=== PATIENT | female | born 1975 | race Caucasian/White ===

== ENCOUNTER 2024-06-09 12:49 | Emergency (ER) | payer MEDICARE, MEDICAID ==
[~2024-06-09] VITALS: Ht 142.2 cm; Wt 109.5 kg
[2024-06-09 13:01] VITALS: PULSE 85; RESP 19; TEMP 98; O2SAT 94
[2024-06-09 13:30] LABS: Basophils # (auto) 0 10 ^3/uL (0-0.2); Basophils % (auto) 0.6 % (0.0-2.0); Eosinophils # (auto) 0.1 10 ^3/uL (0-0.8); Eosinophils % (auto) 2.9 % (0.0-7.0); Hematocrit 34.6 % (36.0-46.0); Hemoglobin 11.5 g/dL (12.2-16.2); Lymphocytes % (auto) 20.3 % (10.0-50.0); Mean Corpuscular Hgb Conc. 33.2 g/dL (32.0-36.0); Mean Corpuscular Volume 96.3 fL (80.0-100.0); Monocytes # (auto) 0.7 10 ^3/uL (0-1.3); Monocytes % (auto) 13.5 % (0.0-12.0); Neutrophils # (auto) 3.2 10 ^3/uL (1.6-8.6); Neutrophils % (auto) 62.7 % (37.0-80.0); Red Cell Distribution Width 15.4 % (11.8-14.3)
[2024-06-09 13:52] LABS: Alanine Aminotransferase 23 U/L (7-40); Alkaline Phosphatase 65 U/L (46-116); Anion Gap 4 (5-15); Aspartate Aminotransferase 30 U/L (13-40); BUN/Creatinine Ratio 17.2 (10.0-20.0); Bilirubin, Total 0.5 mg/dL (0.2-1.0); Blood Urea Nitrogen 17 mg/dL (9-23); Calcium 9.2 mg/dL (8.7-10.4); Carbon Dioxide 30 mmol/L (20-30); Chloride 108 mmol/L (98-107); Glucose 78 mg/dL (74-106); Potassium 4.6 mmol/L (3.5-5.1); Sodium 142 mmol/L (136-145); Total Protein 7.1 g/dL (5.7-8.2)
[2024-06-09] MEDS: FUROSEMIDE 20 MG TAB PO ONE (14:59)
[2024-06-09 15:30] VITALS: BP 167/86; PULSE 85; RESP 19; O2SAT 94
== END 2024-06-09 15:46 | disposition home or self-care (01) ==
LOC: EDBD 12:49 → ER 13:02
DX: S00.12XA Contusion of left eyelid and periocular area, initial encounter (principal); W18.09XA Striking against other object with subsequent fall, initial encounter; Y93.89 Activity, other specified; Y92.89 Other specified places as the place of occurrence of the external cause; Y99.8 Other external cause status
CPT/HCPCS: 36415; 70450; 80053; 83880; 85025

== ENCOUNTER 2024-11-16 17:24 | Inpatient (IN) | payer MEDICARE, MEDICAID ==
[~2024-11-16] VITALS: Ht 142.2 cm; Wt 72.3 kg
--- NOTE | 2024-11-16 18:47 | ECG ---
[facility] Test Date: 2024-11-16 Test Time: 18:45:17 Pat Name: CHIKIS HOLT Department: ER Room: 0281T Gender: F Administrative Support Clerk: LYNNETTE : 1975 Requested By: SHUBHAM ESTEVES Order Number: [id number] Reading MD: Yousuf Marmolejo Measurements Intervals [place] Rate: 78 P: 95 RI: 47 QRS: -1 QRSD: 96 T: -2 QT: 403 QTc: 460 Interpretive Statements Sinus rhythm Paired ventricular premature complexes Short RI interval Right atrial enlargement Abnormal R-wave progression, early transition LVH with secondary repolarization abnormality Anterior Q waves, possibly due to LVH Minimal ST elevation, inferior leads Electronically Signed On 11-22-2024 15:08:29 PST by Yousuf Marmolejo Please click the below link to view image of tracing.
--- NOTE | 2024-11-16 18:53 | ED.PDOC ---
Altered Mental Status HPI Comments Roseanna Camejo is a 49 year old female patient who presents to the ED brought by caregiver (Elif) from assisted living facility ([facility]) due to altered mental status which patient presented since starting her shift (2pm). She presents with confused speech, intermittent repetitive blinking aye movement, rolled her eyes, does not follow orders, is not oriented in any spheres. Could not obtain review of systems due to patients clinical status, all information obtained from caregiver and medical charts she brought. Per caregiver, patient has received all medication Past medical history: Autism, developmental delay, epilepsy, hypothyroidism Surgical history: Caregiver does not recall Family history: Non contributory Social history: Lives in assisted living facility ([facility]). Ezequiel tobacco, alcohol and other drug abuse. Allergies: Denies Home medication: Valproic acid 250mg/5ml take 15ml tid, Gapapentin 250mg/5ml take 6ml in am and at noon, 18ml in pm, Losartan 50mg daily, levothyroxin 75ug PO daily, Metoprolol 100 mg PO daily, Olanzapine 10 mg PO daily, Norethindrone 0.35 daily, Torsemide, senna Fluoxetine, Ketoconazole, Hydroxizine, Melatonin, Promethazine, Sudogest Chief Complaint: General Weakness Time Seen by MD: 17:53 Primary Care Provider: unknown Allergies: Coded Allergies: NO KNOWN ALLERGIES (Unverified , 06/09/24) Information Source: Legal Guardian Mode of Arrival: EMS Severity: Moderate Past Medical History Past Medical History (Other): Autism, developmental delay, epilepsy, hypothyroidism Surgical History: Denies all surgeries 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 TEACHER History: Denies all 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 TEACHER Hx Family History Family History: Reviewed,noncontributory to illness, Unknown Social History Smoker: Non-Smoker Alcohol: Denies ETOH Use Drugs: Denies Drug Use Lives In: [facility] Unable to Obtain due to: Altered Mental Status Physical Exam General Appearance: No Apparent Distress HEENT: PERRL/EOMI Neck: Full Range of Motion, Normal Inspection Respiratory: Lungs Clear, No Accessory Muscle Use, No Respiratory Distress, Normal Breath Sounds Cardiovascular: No Edema, No JVD, Regular Rate/Rhythm Breast Exam: Deferred Gastrointestinal: Non Tender, Soft Genitalia: Deferred Pelvic: Deferred Rectal: Deferred Extremities: Normal inspection, Normal range of motion, Non-tender, No pedal edema Neurologic: Alert (Oriented x1, does not follow commands), Other (Demonstrates repetitive blinking eye movements, moves all extremities.) Cerebellar Function: NOT DONE Reflexes: NOT DONE Skin: Dry, Normal Color, Warm Lymphatic: NOT DONE Was a procedure done? Was a procedure done?: No Differential Diagnosis (ALOC) Differential Diagnosis: Dehydration, Hypoglycemia, Encephalopathy, Sepsis, Seizure, CVA, SAH, Other (UTI, among others) Other Differential Diagnosis Rule out breakthrough seizure / CVA X-Ray, Labs, Meds, VS Vital Signs Date Time Temp Pulse Resp B/P (MAP) Pulse Ox O2 Delivery O2 Flow Rate FiO2 11/16/24 20:03 70 11/16/24 18:45 78 11/16/24 17:34 97.8 60 20 136/86 (103) 93 Lab Test 11/16/24 19:59 11/16/24 18:30 Range/Units Ammonia 39 H 11-32 umol/L Troponin I High Sensitivity 4 3 L </=34 ng/L Levetiracetam Level Pending White Blood Count 3.7 L 4.4-10.8 10^3/uL Red Blood Count 3.93 L 4.0-5.20 10^6/uL Hemoglobin 13.4 12.2-16.2 g/dL Hematocrit 39.6 36.0-46.0 % Mean Corpuscular Volume 100.8 H 80.0-100.0 fL Mean Corpuscular Hemoglobin 34.0 H 28.0-32.0 pg Mean Corpuscular Hemoglobin Concent 33.7 32.0-36.0 g/dL Red Cell Distribution Width 16.6 H 11.8-14.3 % Platelet Count 68 L 140-450 10^3/uL Mean Platelet Volume 8.3 6.9-10.8 fL Neutrophils (%) (Auto) 51.8 37.0-80.0 % Lymphocytes (%) (Auto) 31.8 10.0-50.0 % Monocytes (%) (Auto) 14.7 H 0.0-12.0 % Eosinophils (%) (Auto) 1.3 0.0-7.0 % Basophils (%) (Auto) 0.4 0.0-2.0 % Neutrophils # (Auto) 1.9 1.6-8.6 10 ^3/uL Lymphocytes # (Auto) 1.2 0.4-5.4 10 ^3/uL Monocytes # (Auto) 0.5 0-1.3 10 ^3/uL Eosinophils # (Auto) 0 0-0.8 10 ^3/uL Basophils # (Auto) 0 0-0.2 10 ^3/uL Nucleated Red Blood Cells 0.0 % Platelet Estimate Decreased Macrocytosis Slight Stomatocytes Few Prothrombin Time 11.1 9.3-11.8 sec Prothrombin Time INR 1.05 0.9-1.15 Activated Partial Thromboplast Time 28.2 24.5-34.5 SEC Sodium Level 143 136-145 mmol/L Potassium Level 3.5 3.5-5.1 mmol/L Chloride Level 100 98-107 mmol/L Carbon Dioxide Level 37 H 20-31 mmol/L Anion Gap 6 5-15 Blood Urea Nitrogen 15 9-23 mg/dL Creatinine 1.08 H 0.550-1.02 mg/dL Glomerular Filtration Rate Calc 62 >90 mL/min BUN/Creatinine Ratio 13.9 10.0-20.0 Serum Glucose 83 74-106 mg/dL Lactic Acid Level 0.8 0.4-2.0 mmol/L Calcium Level 9.0 8.7-10.4 mg/dL Magnesium Level 2.2 1.6-2.6 mg/dL Total Bilirubin 0.7 0.2-1.0 mg/dL Aspartate Amino Transferase (AST) 37 13-40 U/L Alanine Aminotransferase (ALT) 21 7-40 U/L Alkaline Phosphatase 84 46-116 U/L B-Type Natriuretic Peptide 514.27 0-100 pg/mL Total Protein 7.2 5.7-8.2 g/dL Albumin 3.7 3.2-4.8 g/dL Beta HCG, Quantitative 0.5 L 1.5-4.2 mIU/mL Valproic Acid Level 114.9 *H 50-100 ug/mL PROCEDURE(s): HWOCT - HEAD WITHOUT CONTRAST REASON: ALOC ORDER NUMBER(s): [id number], ACCESSION NUMBER(s): [id number] EXAM: CT Head Without Intravenous Contrast CLINICAL INDICATION: ALOC TECHNIQUE: Axial computed tomography images of the head/brain without intravenous contrast. This CT exam was performed using one or more of the following dose reduction techniques: automated exposure control, adjustment of the mA and/or kV according to patient size, and/or use of iterative reconstruction technique. RADIATION DOSE: CTDlvol= 58 mGy, DLP= 1177.04 mGy-cm COMPARISON: CT CERVICAL WITHOUT CONTRAST on DOS: 06/18/24, CT HEAD WITHOUT CONTRAST on DOS: 06/18/24, CT HEAD WITHOUT CONTRAST on DOS: 06/09/24, CT Head dated 06/18/24 FINDINGS: BRAIN AND EXTRA-AXIAL SPACES: Unremarkable. No significant white matter disease. No acute intracranial hemorrhage, midline shift or mass effect. BONES/JOINTS: Unremarkable. No acute fracture. SOFT TISSUES: Unremarkable. SINUSES: Mucosal thickening of the maxillary sinuses, likely sinus disease.. MASTOID AIR CELLS: Unremarkable as visualized. No mastoid effusion. OTHER FINDINGS: . . IMPRESSION: 1. No acute intracranial hemorrhage, midline shift or mass effect. 2. If symptoms persist, further evaluation with MRI is recommended. 3. No significant change from the prior exam. PROCEDURE(s): CXRP - CHEST PORTABLE REASON: aloc ORDER NUMBER(s): [id number], ACCESSION NUMBER(s): [id number] EXAM: XR Chest, 1 View CLINICAL INDICATION: aloc TECHNIQUE: Frontal view of the chest. COMPARISON: None FINDINGS: LUNGS AND PLEURAL SPACES: Unremarkable. No consolidation. No pneumothorax. HEART: Unremarkable. No cardiomegaly. MEDIASTINUM: Unremarkable. Normal mediastinal contour. BONES/JOINTS: Unremarkable. No acute fracture. OTHER FINDINGS: . . . IMPRESSION: No acute cardiopulmonary process. HS:Y X-Ray, Labs, Meds, VS Comment Roseanna Camejo is a 49 year old female with a history of Autism, developmental delay, epilepsy, hypothyroidism who presents to the ED brought by caregiver (Elif) from assisted living facility ([place]) due to altered mental status Vitals remarkable for oxygen saturation 93% on room air Exam remarkable for orientation x1, not following commands, moving all extremities CT head IMPRESSION: 1. No acute intracranial hemorrhage, midline shift or mass effect. 2. If symptoms persist, further evaluation with MRI is recommended. 3. No significant change from the prior exam. Chest x-ray IMPRESSION: No acute cardiopulmonary process. CBC remarkable for WBC 3.7, platelets 68, metabolic panel remarkable for CO2 37, creatinine 1.08, BNP 514.27, troponin negative, ABG pH 7.496, PO2 56.4, bicarb 28.2, saturation 91% Patient treated with the following in the ED: Patient was placed on nasal cannula oxygen improving her oxygen saturation to normal. She was not in respiratory distress. She was loaded with IV levetiracetam, as there was concern that the repetitive blinking motions were consistent with seizures. Plan is to admit the patient for respiratory support and Neurology evaluation. Time of 1ST Reevaluation: 22:32 Reevaluation 1ST: Unchanged Patient Education/Counseling: Pt Unresponsive Family Education/Counseling: No Family Present Departure 1 Departure Time of Disposition: 22:32 Impression: Primary Impression: Altered mental status Qualified Codes: R41.82 - Altered mental status, unspecified Additional Impressions: Breakthrough seizure Hypoxia Disposition: ADMITTED INPATIENT Admit to: [facility] Condition: Guarded Critical Care Note Critical Care Time?: No Stability Stability form required: No Heart Score Heart Score: Heart Score Response (Comments) Value History N/A 0 EKG N/A 0 Age N/A 0 Risk Factors N/A 0 Troponin N/A 0 Total 0 SHUBHAM HARMON MD Nov 16, 2024 18:53
[2024-11-16 19:08] LABS: Basophils # (auto) 0 10 ^3/uL (0-0.2); Basophils % (auto) 0.4 % (0.0-2.0); Eosinophils # (auto) 0 10 ^3/uL (0-0.8); Eosinophils % (auto) 1.3 % (0.0-7.0); Hematocrit 39.6 % (36.0-46.0); Hemoglobin 13.4 g/dL (12.2-16.2); Lymphocytes # (auto) 1.2 10 ^3/uL (0.4-5.4); Lymphocytes % (auto) 31.8 % (10.0-50.0); Mean Corpuscular Hgb Conc. 33.7 g/dL (32.0-36.0); Mean Corpuscular Volume 100.8 fL (80.0-100.0); Monocytes # (auto) 0.5 10 ^3/uL (0-1.3); Monocytes % (auto) 14.7 % (0.0-12.0); Neutrophils # (auto) 1.9 10 ^3/uL (1.6-8.6); Neutrophils % (auto) 51.8 % (37.0-80.0); Platelet Count (auto) 68 10^3/uL (140-450); Red Blood Cells 3.93 10^6/uL (4.0-5.20); Red Cell Distribution Width 16.6 % (11.8-14.3); White Blood Cell 3.7 10^3/uL (4.4-10.8)
[2024-11-16 19:27] LABS: Alanine Aminotransferase 21 U/L (7-40); Albumin 3.7 g/dL (3.2-4.8); Alkaline Phosphatase 84 U/L (46-116); Anion Gap 6 (5-15); Aspartate Aminotransferase 37 U/L (13-40); BUN/Creatinine Ratio 13.9 (10.0-20.0); Bilirubin, Total 0.7 mg/dL (0.2-1.0); Blood Urea Nitrogen 15 mg/dL (9-23); Chloride 100 mmol/L (98-107); Glucose 83 mg/dL (74-106); Potassium 3.5 mmol/L (3.5-5.1); Sodium 143 mmol/L (136-145); Total Protein 7.2 g/dL (5.7-8.2)
[2024-11-16 19:58] LABS: Carbon Dioxide 37 mmol/L (20-31)
--- NOTE | 2024-11-16 20:14 | ECG ---
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
[2024-11-16 21:05] LABS: Macrocytosis Slight; Platelet Estimate Decreased; Stomatocytes Few
[2024-11-16 21:41] LABS: Base Excess 4.9 mmol/L (-2.0-3.0)
--- NOTE | 2024-11-16 22:02 | DVHHPRES ---
History of Present Illness Resident Creating Document: BRETT MANNING RESDIENT History of Present Illness This is a 49-year-old female with past medical history of autism, moderate developmental delay, epilepsy, hypothyroidism, seasonal allergy, brought from the assisted living facility due to altered mental status. Per patient caregiver, the patient has been more confused since 2 days which is gradually worsen. Confusion was associated with decreased oral intake and impaired mobility. At baseline, the patient can use few words, and can communicate for basic needs, but since 2 days the patient is less verbal. Review of systems could not obtain due to altered mental status. PMHx: Autism, moderate developmental delay with limited vocabulary, epilepsy, hypothyroidism, allergic rhinitis PSHx: Noncontributory Family history: Noncontributory Social history: Patient is living at assisted living facility ([facility]), since six-month patient's mobility has worsened, dependent on walker and wheelchair, patient is living in assisted living facility since 10-year-old(has been in [facility] due to speech problem and tantrum control). Denies smoking, drink alcohol or any other drug use. Home medication: Valproic acid 250 mg t.i.d., gabapentin 250 mg b.i.d., losartan 50 mg daily, levothyroxine 75 mcg daily, metoprolol 100 mg daily, olanzapine 10 mg b.i.d., [place] trend drawn 0.25 mg b.i.d., torsemide 20 mg daily, senna, fluoxetine 20 mg check daily, ketoconazole shampoo, hydroxyzine 25 mg t.i.d., hydrocortisone cream, melatonin 5 mg q.h.s., promethazine, Sudogest. Allergic history: Patient has history of seasonal allergy PCP: Dr. James Ma Smoke: No ALCOHOL: none Lives: Other Review of Systems Review of Systems General: patient denies fever, fatigue, weaknes, sweating, decreased oral intake since 2 days HEENT: No headaches, visiual changes, hearing loss, tinnitus, nasal congestion and discharge, and sore throat. Cardiovascular: Denies chest pain, palpitations, dyspnea on exertion, orthopnea, or claudication. Respiratory: No cough, and wheezing. Gastrointestinal: Denies nausea, vomiting, dysphagia, odynophagia, heartburn, abdominal pain, flatulence, bloating, diarrhea, constipation, change in stool, or blood in stool. Genitourinary: No dysuria, hematuria, discharge, frequency, urgency, nocturia, incontinence, and urinary retention. Endocrine: No heat or cold intolerance, polydipsia, polyuria, and polyphagia. Neurological: Less verbal since 2 days Psychiatric: Denies depression, anxiety,or insomnia. Musculoskeletal: Denies neck pain, stiffness and swelling, back pain, muscle weakness, joint pain, stiffness, swelling, or limited range of motion. Allergies: Coded Allergies: NO KNOWN ALLERGIES (Unverified , 06/09/24) Medications Current Medications Medications Dose Ordered Sig/Marquita Route Start Time Stop Time Status Last Admin Dose Admin Lactulose 15 ml DAILY PO 11/17/24 10:00 Levetiracetam 100 ml @ 400 mls/hr DAILY IV 11/17/24 10:00 Levothyroxine Sodium 75 mcg QAM@0600 PO 11/17/24 06:00 UNV Exam Vital Signs Vital Signs Date Time Temp Pulse Resp B/P (MAP) Pulse Ox O2 Delivery O2 Flow Rate FiO2 11/16/24 20:03 70 11/16/24 17:34 97.8 20 136/86 (103) 93 Exam General Appearance: Alert, patient is less verbal, orientation could not assessed HEENT: Has intermittent repetitive blinking Respiratory: Bilateral decreased breath sounds Cardiovascular: Regular rate, Normal S1, Normal S2, No murmurs, no chest wall tenderness Abdominal: Normal bowel sounds, Soft, No tenderness, No hepatospenomegaly, No masses Extremities: +1 bilateral pedal edema Skin: Bilateral dry skin of foot with scaling Neuro: Currently the patient is wheelchair-bound, could not perform neurological examination, resting tremor Labs/Xrays Labs Test 11/16/24 21:52 11/16/24 21:37 11/16/24 19:59 11/16/24 18:30 Range/Units Blood Gas Specimen Type Arterial Blood Gas Sample Site Right radial Blood Gas Patient Temperature 37.0 Arterial Blood Date Drawn [id number] Arterial Blood pH 7.496 H 7.350-7.450 Arterial Blood Partial Pressure CO2 37.4 32.0-45.0 mmHg Arterial Blood Partial Pressure O2 56.4 L 83.0-108.0 mmHg Arterial Blood HCO3 28.2 H 21.0-28.0 mmol/L Arterial Blood Oxygen Saturation 91.0 L 94.0-98.0 % Arterial Blood Base Excess 4.9 H -2.0-3.0 mmol/L Arterial Blood Oxyhemoglobin 89.5 L 94.0-98.0 % Arterial Blood Carboxyhemoglobin 0.9 0.5-1.5 % Arterial Blood Methemoglobin 0.7 0.0-1.5 % Balwinder Test Modified Blood Gas Total Hemoglobin 13.40 12.0-16.0 g/dL Blood Gas Liter Flow 0.00 Blood Gas Modality Room air Blood Gas Spontaneous Rate 20 FiO2 % 21.0 Specimen Drawn [facility] Troponin I High Sensitivity 4 </=34 ng/L White Blood Count 3.7 L 4.4-10.8 10^3/uL Red Blood Count 3.93 L 4.0-5.20 10^6/uL Hemoglobin 13.4 12.2-16.2 g/dL Hematocrit 39.6 36.0-46.0 % Mean Corpuscular Volume 100.8 H 80.0-100.0 fL Mean Corpuscular Hemoglobin 34.0 H 28.0-32.0 pg Mean Corpuscular Hemoglobin Concent 33.7 32.0-36.0 g/dL Red Cell Distribution Width 16.6 H 11.8-14.3 % Platelet Count 68 L 140-450 10^3/uL Mean Platelet Volume 8.3 6.9-10.8 fL Neutrophils (%) (Auto) 51.8 37.0-80.0 % Lymphocytes (%) (Auto) 31.8 10.0-50.0 % Monocytes (%) (Auto) 14.7 H 0.0-12.0 % Eosinophils (%) (Auto) 1.3 0.0-7.0 % Basophils (%) (Auto) 0.4 0.0-2.0 % Neutrophils # (Auto) 1.9 1.6-8.6 10 ^3/uL Lymphocytes # (Auto) 1.2 0.4-5.4 10 ^3/uL Monocytes # (Auto) 0.5 0-1.3 10 ^3/uL Eosinophils # (Auto) 0 0-0.8 10 ^3/uL Basophils # (Auto) 0 0-0.2 10 ^3/uL Nucleated Red Blood Cells 0.0 % Platelet Estimate Decreased Macrocytosis Slight Stomatocytes Few Sodium Level 143 136-145 mmol/L Potassium Level 3.5 3.5-5.1 mmol/L Chloride Level 100 98-107 mmol/L Carbon Dioxide Level 37 H 20-31 mmol/L Anion Gap 6 5-15 Blood Urea Nitrogen 15 9-23 mg/dL Creatinine 1.08 H 0.550-1.02 mg/dL Glomerular Filtration Rate Calc 62 >90 mL/min BUN/Creatinine Ratio 13.9 10.0-20.0 Serum Glucose 83 74-106 mg/dL Lactic Acid Level 0.8 0.4-2.0 mmol/L Calcium Level 9.0 8.7-10.4 mg/dL Magnesium Level 2.2 1.6-2.6 mg/dL Total Bilirubin 0.7 0.2-1.0 mg/dL Aspartate Amino Transferase (AST) 37 13-40 U/L Alanine Aminotransferase (ALT) 21 7-40 U/L Alkaline Phosphatase 84 46-116 U/L B-Type Natriuretic Peptide 514.27 0-100 pg/mL Total Protein 7.2 5.7-8.2 g/dL Albumin 3.7 3.2-4.8 g/dL Beta HCG, Quantitative 0.5 L 1.5-4.2 mIU/mL Valproic Acid Level 114.9 *H 50-100 ug/mL Assessment/Plan Assessment/Plan Acute metabolic encephalopathy, likely due to polypharmacy/SIRS/possible hepatic Sirs positive History of autism History of epilepsy Moderate developmental today Serum valproic acid level is raised Head CT scan, shows no acute intracranial abnormalities WBCs decreased at 3.7, heart rate is raised at 95 Continue levetiracetam We will hold home medicine at the moment Empiric antibiotic ceftriaxone IV normal saline Check urinalysis Check flu and COVID-19 Possible gastroenteritis Patient has increased bowel movements since 2 days IV fluid Hepatic steatosis Hyper ammonia Liver ultrasound shows, hepatic steatosis Thrombocytopenia, no bleeding History of hypothyroidism, possible under treatment hypothyroidism Continue levothyroxine 75 mcg TSH is raised at 8.69 Check free T3/T4 DIET: Regular diet BOWEL REGIMEN: No indication for laxative CODE STATUS: Goal of care discussed with the mother on the phone, for more than 23 minutes, full code DISPOSITION: Meds/surge Patient's status discussed with the patient's caregiver on the bedside, and patient's mother on the phone. Case discussed with Dr. Espinoza Plan discussed with: Patient, Other (RN) My Orders Orders - BRETT MANNING RESJOAQUÍN Procedure Category Date Status Time Thyroid Stimulating LAB 11/16/24 In Process Hormone 20:51 Admit ADMIT 11/16/24 Transmitted 20:51 Notify Of Changes TAMMIE 11/16/24 In Process From Base 20:51 Sodium Chloride 0.9% PHA 11/16/24 Logged 22:00 Enoxaparin Sodium PHA 11/16/24 Logged (Lovenox) 22:00 Regular Diet DIET 11/17/24 Transmitted Breakfast Levothyroxine Tablet PHA 11/17/24 Logged (Synthroid Tablet) 06:00 Ammonia LAB 11/16/24 In Process 21:55 LIVER US 11/16/24 Logged 21:55 Comprehensive LAB 11/17/24 Verified Metabolic Panel 04:00 Complete Blood Count LAB 11/17/24 Verified 04:00 Date of Service: Nov 16, 2024 Billing Provider: LAITH ESPINOZA MD Common Visit Codes: [id number] INP/OBS CARE (HIGH) BRETT MANNING RESDIENT Nov 16, 2024 22:02 LAITH ESPINOZA MD Nov 17, 2024 09:43
[2024-11-16 22:20] LABS: INR 1.05 (0.9-1.15); Partial Thromboplastin Time 28.2 SEC (24.5-34.5); Prothrombin Time 11.1 sec (9.3-11.8)
[2024-11-16] MEDS ORDERED: ENOXAPARIN SOD 40 MG/0.4 ML SYRINGE SC ONE (22:30)
--- NOTE | 2024-11-16 23:23 | DVH ---
INDICATION: thrombocytopenia, raised ammonia, to R/O liver disease TECHNIQUE: Multiple real-time sonographic images were obtained of the right upper quadrant. COMPARISON: None FINDINGS: The liver demonstrates heterogeneous echotexture without focal mass lesions. The liver tao sures 15.9 cm. There is no intrahepatic or extrahepatic ductal dilatation. The common duct measures 0.4 cm. The gallbladder is without evidence of stone or sludge. The gallbladder wall measures 0.2 cm and is within normal limits. The right kidney measures 8.5 cm. The right kidney is normal in contour, size, and shape. The echog enicity is normal. There is no hydronephrosis. The pancreas is not well visualized due to overlying bowel gas. IMPRESSION: 1. No acute findings identified. 2. Hepatic steatosis
[2024-11-16 23:45] LABS: Free T3 2.3 pg/mL (2.3-4.2); Free T4 (Free Thyroxine) 1.29 ng/dL (0.89-1.76)
[2024-11-17] MEDS: levETIRAcetam 1000 mg/100ml 100 ML IV ONE (00:20)
[2024-11-17] MEDS: SODIUM CHLORIDE 0.9% 1,000 ML IV ONE (00:36)
[2024-11-17 00:37] VITALS: PULSE 66; RESP 20; O2SAT 93
[2024-11-17 04:38] LABS: White Blood Cell 3.9 10^3/uL (4.4-10.8)
[2024-11-17 04:40] LABS: Hematocrit 34.8 % (36.0-46.0); Hemoglobin 11.9 g/dL (12.2-16.2); Mean Corpuscular Hemoglobin 34.6 pg (28.0-32.0); Mean Corpuscular Hgb Conc. 34.2 g/dL (32.0-36.0); Mean Corpuscular Volume 101.3 fL (80.0-100.0); Platelet Count (auto) 63 10^3/uL (140-450); Red Blood Cells 3.43 10^6/uL (4.0-5.20); Red Cell Distribution Width 16.4 % (11.8-14.3)
[2024-11-17 04:49] LABS: Band Neutrophils % (manual) 0; Basophils % (manual) 0 (0.0-2.0); Blast Cells 0; Metamyelocytes % 0; Myelocytes % 0; Promyelocytes % 0; Reactive Lymphocytes 0
[2024-11-17 04:55] LABS: Alanine Aminotransferase 17 U/L (7-40); Alkaline Phosphatase 78 U/L (46-116); Anion Gap 4 (5-15); Aspartate Aminotransferase 31 U/L (13-40); Blood Urea Nitrogen 18 mg/dL (9-23); Chloride 102 mmol/L (98-107); Glucose 99 mg/dL (74-106); Sodium 142 mmol/L (136-145)
[2024-11-17 04:56] LABS: Albumin 3.5 g/dL (3.2-4.8); Bilirubin, Total 0.6 mg/dL (0.2-1.0); Total Protein 6.8 g/dL (5.7-8.2)
[2024-11-17 04:57] LABS: COVID19 ANTIGEN SOFIA FIA NEGATIVE (NEGATIVE); Rapid Influenza A Negative (Negative); Rapid Influenza B Negative (Negative)
[2024-11-17 04:58] LABS: Carbon Dioxide 36 mmol/L (20-31); Potassium 3.4 mmol/L (3.5-5.1)
[2024-11-17 05:08] LABS: BUN/Creatinine Ratio 15.7 (10.0-20.0)
[2024-11-17] MEDS: LEVOTHYROXINE SODIUM 25 MCG TAB PO SCH (06:32)
[2024-11-17 07:36] LABS: Eosinophils % (manual) 1 (0-7); Lymphocytes % (manual) 30 (10.0-50.0); Macrocytosis Slight; Monocytes % (manual) 13 (0-12); Platelet Estimate Decreased
[2024-11-17] MEDS: POTASSIUM EFFERVESENT TAB 25 MEQ PO ONE (07:53)
[2024-11-17] MEDS: cefTRIAXone 1GM/50ML D5W 50 ML IV SCH (09:15)
[2024-11-17 10:00] VITALS: PULSE 65; RESP 18; O2SAT 93
[2024-11-17] MEDS ORDERED: LACTULOSE 20Gm/30ML SOLN PO SCH (10:00)
[2024-11-17] MEDS: levETIRAcetam 1000 mg/100ml 100 ML IV SCH (11:06)
--- NOTE | 2024-11-17 14:09 | DVHPNRES ---
Progress Note Date Seen: Nov 17, 2024 Resident Creating Document: NII FARRELL RESIDENT Medical Necessity Reason Pt with a Central, PICC or Fol: No Subjective Review of Systems This is a 49-year-old female with past medical history of autism, moderate developmental delay, epilepsy, hypothyroidism, seasonal allergy, brought from the assisted living facility due to altered mental status. Per patient caregiver, the patient has been more confused since 2 days which is gradually worsen. Confusion was associated with decreased oral intake and impaired mobility. At baseline, the patient can use few words, and can communicate for basic needs, but since 2 days the patient is less verbal. Review of system could not be obtain as she is not communicating. Objective vital signs Vital Sign Date Time Temp Pulse Resp B/P (MAP) Pulse Ox O2 Delivery O2 Flow Rate FiO2 11/17/24 12:00 69 18 129/110 (116) 92 11/17/24 10:00 Room Air* 0 21 11/17/24 10:00 98.2 98.2 medications Current Medications Medications Dose Ordered Sig/Marquita Route Start Time Stop Time Status Last Admin Dose Admin Levetiracetam 100 ml @ 400 mls/hr DAILY IV 11/17/24 10:00 11/17/24 11:06 400 MLS/HR Levothyroxine Sodium 75 mcg QAM@0600 PO 11/17/24 06:00 Ceftriaxone Sodium 50 ml @ 100 mls/hr DAILY@09 IV 11/17/24 09:00 11/17/24 09:15 100 MLS/HR Lactulose 15 ml DAILY PO 11/18/24 10:00 UNV Multivitamins/ Minerals 1 tab DAILY PO 11/18/24 10:00 UNV Examination Physical examination: General Appearance: Alert, patient is less verbal, orientation could not assessed HEENT: Has intermittent repetitive blinking Respiratory: Bilateral decreased breath sounds Cardiovascular: Regular rate, Normal S1, Normal S2, No murmurs, no chest wall tenderness Abdominal: Normal bowel sounds, Soft, No tenderness, No hepatospenomegaly, No masses Extremities: +1 bilateral pedal edema Skin: Bilateral dry skin of foot with scaling Neuro: Currently the patient is wheelchair-bound, could not perform neurological examination, resting tremor laboratory and microbiology Laboratory Tests 11/17/24 04:23 Test 11/17/24 04:23 Range/Units Serum Glucose 99 74-106 mg/dL Labs and/or images reviewed: Labs reviewed by me, Image(s) reviewed by me Problem List/Assessment/Plan Problem List/Assessment/Plan Assessment/Plan Acute toxic encephalopathy, likely due to polypharmacy History of autism History of epilepsy Moderate developmental today Serum valproic acid level is raised Head CT scan, shows no acute intracranial abnormalities Hb drops to 11.9 likely due to hemodilution, MCV>100 Continue levetiracetam Hold home meds Empiric antibiotic ceftriaxone Covid/Flu negative Pending urinalysis Consulted neurology for reconciliation of antiepileptic medication. Possible gastroenteritis Patient has increased bowel movements since 2 days 1L normal saline given. Hypokalemia Replenished Hepatic steatosis Hyper ammonia Liver ultrasound shows, hepatic steatosis Ammonia trend 69>31 Thrombocytopenia, no bleeding History of hypothyroidism, possible under treatment hypothyroidism Continue levothyroxine 75 mcg TSH is raised at 8.69 T3/T4 normal DIET: Regular diet BOWEL REGIMEN: 15 ml of lactulose daily. CODE STATUS: Goal of care discussed with the mother on the phone, for more than 23 minutes, full code DISPOSITION: Meds/surge Plan discussed with: Other My Orders My Orders Orders - NII FARRELL RESIDENT Procedure Category Date Status Time Echo 2d Mode Cardiac US 11/17/24 Logged DOP 10:16 Lactulose Oral PHA 11/18/24 Logged 10:00 * Neurology Consult CONS 11/17/24 Transmitted 13:23 Bladder Scan ORDERS 11/17/24 Transmitted 13:23 Sequential TAMMIE 11/17/24 In Process Compression Device 13:23 Multiple Vitamin W PHA 11/18/24 Logged Mineral Tab (Mvi W/ M 10:00 Urinalysis LAB 11/17/24 Uncollected 13:26 Date of Service: Nov 17, 2024 Billing Provider: RIGO BREEN MD Common Visit Codes: [id number] INP/OBS CARE(HIGH) NII FARRELL RESIDENT Nov 17, 2024 14:09 RIGO BREEN MD Nov 19, 2024 15:55
--- NOTE | 2024-11-17 19:25 | DVHINCON2 ---
Date of service: Nov 17, [address] Suero Reason for Consultation ALOC, history of epilepsy, autism History of Present Illness Ms. Camejo is a 49 years old female with a history of hypertension, hypothyroidism, autism, development delay, seizure disorder, the patient was brought to the [facility] on 11/16/2024 with a chief company of altered mental status. At this time, the patient is awake, but she may only oriented to herself, she talks, but she does not answer questions properly. History is obtained from the chart review, Dr. Suero and her facility at [phone] She has autism, mental retardation, her baseline is able to understand her surroundings some degree, with a reasonable social skills, she can express her basic needs but not able to say full long sentences. She walked with a walker or assistance. But since 11/16/2024, the patient was noted to be different from her baseline, more confused. ER notes altered mentioned intermittent repetitive blinking, rolling eyes. She has a seizure disorder, but her facility has not witnessed any seizure activity since she was admitted in 06/2024 According to her medication list, the patient was on folic acid 250 mg/5 mL, 15 mL t.i.d. gabapentin, 250 mg/5ml, 6 ml in the morning, afternoon, 18ml in the evening Depakote, 11/17/2024: 114.9 WBC/HB/PLT/MCV, 11/17/2024: 3. 9/11/9/63/101.3 HCO3 11/16/2024: 37, 11/17/2024: 36 BUN/CR, 11/17/2024: 18/1.15 Liver function tests, 11/17/2024: Unremarkable NH3, : 39, 69, 11/17/2024: 31 Vitamin B12, 11/17/2024: 866 TSH, 12/03/2024: 8.69 FT4, 12/03/2024: 1.29 Ultrasound, 11/16/2024: 1. No acute findings identified. 2. Hepatic steatosis Chest X-Ray, 11/16/2024: No acute cardiopulmonary process CT head, 11/16/2024: 1. No acute intracranial hemorrhage, midline shift or mass effect. 2. If symptoms persist, further evaluation with MRI is recommended. 3. No significant change from the prior exam Past Medical History Hypertension, hypothyroidism, developmental delay, autism, epilepsy Past Surgical History Denies all surgeries Family History Unknown Social History Unknown Allergies: Coded Allergies: NO KNOWN ALLERGIES (Unverified , 06/09/24) Current Medications Current Medications Medications (Trade) Dose Ordered Sig/Marquita Route PRN Reason Start Time Stop Time Status Last Admin Lactulose 15 ml DAILY PO 11/17/24 10:00 11/17/24 01:43 DC Levetiracetam 100 ml @ 400 mls/hr DAILY IV 11/17/24 10:00 11/17/24 11:06 Levothyroxine Sodium (Synthroid Tablet) 75 mcg QAM@0600 PO 11/17/24 06:00 Ceftriaxone Sodium 50 ml @ 100 mls/hr DAILY@09 IV 11/17/24 09:00 11/17/24 09:15 Enoxaparin Sodium (Lovenox) 30 mg DAILY SC 11/18/24 10:00 11/17/24 02:48 DC Lactulose 15 ml DAILY PO 11/18/24 10:00 Multivitamins/ Minerals (Mvi W/ Minerals Tablet) 1 tab DAILY PO 11/18/24 10:00 Review of Systems Unknown Vital Signs Vital Signs Date Time Temp Pulse Resp B/P (MAP) Pulse Ox O2 Delivery O2 Flow Rate FiO2 11/17/24 18:00 89 17 160/93 (115) 11/17/24 16:00 95 11/17/24 14:00 98.7 98.7 11/17/24 10:00 Room Air* 0 21 Physical Exam GENERAL EXAM: General: the patient is well developed and nourished. No acute distress. HEENT: Normocephalic, neck is supple, no carotid bruits. No mass RESPIRATORY: Normal respiratory effort with symmetrical lung expansion. Lungs clear to auscultation. CARDIOVASCULAR: Regular rate and rhythm with no murmurs. S1, S2. ABDOMEN: Soft, nontender, normal bowel sound NEUROLOGICAL: MENTAL STATUS: Awake, oriented to herself SPEECH, LANGUAGE, HIGHER CORTICAL FUNCTION: no aphasia or dysathria. CRANIAL NERVES: #2: Intact visual mark to confrontation. #3,4,6: Pupils are equal, round and reactive. EOMs full and conjugate. #5: Facial sensation intact in all three divisions bilaterally. Mandibular strength intact. #7: Facial muscles symmetrical and strength intact. #8: Hearing grossly normal to voice. #9,10: Uvula and soft palate rise in the midline. Swallow and voice are normal. #11: Trapezius and sternomastoid strength intact bilaterally. #12: Tongue midline. No fasciculations or atrophy. SENSATION: Sensation to touch and pinprick is fine MOTOR: Normal tone in the upper and lower extremity. Normal muscle bulk. No fasciculations. Tremors in both arms, and chin. Muscle strength of the major groups in the upper extremities is 5/5. She moves the legs REFLEXES: Deep tendon reflexes are symmetrical. No pathological reflexes. CEREBELLAR/COORDINATION: Deferred, she can feed herself GAIT/STATION: deferred. Labs/Diagnostic Data Labs Test 11/17/24 04:23 11/17/24 03:04 11/16/24 21:52 11/16/24 21:37 Range/Units White Blood Count 3.9 L 4.4-10.8 10^3/uL Red Blood Count 3.43 L 4.0-5.20 10^6/uL Hemoglobin 11.9 L 12.2-16.2 g/dL Hematocrit 34.8 #L 36.0-46.0 % Mean Corpuscular Volume 101.3 H 80.0-100.0 fL Mean Corpuscular Hemoglobin 34.6 H 28.0-32.0 pg Mean Corpuscular Hemoglobin Concent 34.2 32.0-36.0 g/dL Red Cell Distribution Width 16.4 H 11.8-14.3 % Platelet Count 63 L 140-450 10^3/uL Mean Platelet Volume 8.0 6.9-10.8 fL Neutrophils (%) (Auto) 37.0-80.0 % Lymphocytes (%) (Auto) 10.0-50.0 % Monocytes (%) (Auto) 0.0-12.0 % Basophils (%) (Auto) 0.0-2.0 % Neutrophils # (Auto) 1.6-8.6 10 ^3/uL Lymphocytes # (Auto) 0.4-5.4 10 ^3/uL Monocytes # (Auto) 0-1.3 10 ^3/uL Differential Total Cells Counted 100.0 100 Neutrophils % (Manual) 56 37.0-80.0 Band Neutrophils % (Manual) 0 Lymphocytes % (Manual) 30 10.0-50.0 Monocytes % (Manual) 13 H 0-12 Eosinophils % (Manual) 1 0-7 Basophils % (Manual) 0 0.0-2.0 Metamyelocytes % (manual) 0 Myelocytes % (Manual) 0 Promyelocytes % (Manual) 0 Blast Cells % (Manual) 0 Reactive Lymphocytes 0 Platelet Estimate Decreased Macrocytosis Slight Sodium Level 142 136-145 mmol/L Potassium Level 3.4 L 3.5-5.1 mmol/L Chloride Level 102 98-107 mmol/L Carbon Dioxide Level 36 H 20-31 mmol/L Anion Gap 4 L 5-15 Blood Urea Nitrogen 18 9-23 mg/dL Creatinine 1.15 H 0.550-1.02 mg/dL Glomerular Filtration Rate Calc 58 >90 mL/min BUN/Creatinine Ratio 15.7 10.0-20.0 Serum Glucose 99 74-106 mg/dL Calcium Level 9.0 8.7-10.4 mg/dL Total Bilirubin 0.6 0.2-1.0 mg/dL Aspartate Amino Transferase (AST) 31 13-40 U/L Alanine Aminotransferase (ALT) 17 7-40 U/L Alkaline Phosphatase 78 46-116 U/L Ammonia 31 11-32 umol/L Total Protein 6.8 5.7-8.2 g/dL Albumin 3.5 3.2-4.8 g/dL Vitamin B12 Level 866 211-911 pg/mL Vitamin D 25-Hydroxy 37.3 30.0-100 ng/mL Influenza Type A Antigen Negative Negative Influenza Type B Antigen Negative Negative SARS-CoV-2 Antigen (Rapid) Negative NEGATIVE Thyroid Stimulating Hormone (TSH) 8.69 H 0.55-4.78 uIU/mL Blood Gas Specimen Type Arterial Blood Gas Sample Site Right radial Blood Gas Patient Temperature 37.0 Arterial Blood Date Drawn [id number] Arterial Blood pH 7.496 H 7.350-7.450 Arterial Blood Partial Pressure CO2 37.4 32.0-45.0 mmHg Arterial Blood Partial Pressure O2 56.4 L 83.0-108.0 mmHg Arterial Blood HCO3 28.2 H 21.0-28.0 mmol/L Arterial Blood Oxygen Saturation 91.0 L 94.0-98.0 % Arterial Blood Base Excess 4.9 H -2.0-3.0 mmol/L Arterial Blood Oxyhemoglobin 89.5 L 94.0-98.0 % Arterial Blood Carboxyhemoglobin 0.9 0.5-1.5 % Arterial Blood Methemoglobin 0.7 0.0-1.5 % Balwinder Test Modified Blood Gas Total Hemoglobin 13.40 12.0-16.0 g/dL Blood Gas Liter Flow 0.00 Blood Gas Modality Room air Blood Gas Spontaneous Rate 20 FiO2 % 21.0 [facility] 11/16/24 19:59 11/16/24 18:30 Range/Units Troponin I High Sensitivity 4 </=34 ng/L Eosinophils (%) (Auto) 1.3 0.0-7.0 % Eosinophils # (Auto) 0 0-0.8 10 ^3/uL Basophils # (Auto) 0 0-0.2 10 ^3/uL Nucleated Red Blood Cells 0.0 % Stomatocytes Few Prothrombin Time 11.1 9.3-11.8 sec Prothrombin Time INR 1.05 0.9-1.15 Activated Partial Thromboplast Time 28.2 24.5-34.5 SEC Lactic Acid Level 0.8 0.4-2.0 mmol/L Magnesium Level 2.2 1.6-2.6 mg/dL B-Type Natriuretic Peptide 514.27 0-100 pg/mL Free Thyroxine (T4) Calculated 1.29 0.89-1.76 ng/dL Free Triiodothyronine (T3) pg/mL 2.30 2.3-4.2 pg/mL Beta HCG, Quantitative 0.5 L 1.5-4.2 mIU/mL Valproic Acid Level 114.9 *H 50-100 ug/mL Microbiology Date/Time Source Procedure Growth Status 11/16/24 18:30 Blood Blood Culture - Preliminary Resulted Assessment Altered mental status, etiology unclear Carbon dioxide retention Metabolic encephalopathy ? Hepatic encephalopathy Rule out other etiology Tremors ? Related to Depakote ? Secondary to metabolic encephalopathy Respiratory failure Seizure disorder Autism Mental retardation Thrombocytopenia, ? Secondary to Depakote Microcytic anemia Plan/Recommendation Monitoring Supportive treatment Telemetry Urinalysis Vitamin B12, folic acid EEG Lactulose Agree Keppra 1000 mg b.i.d. for seizure control Ativan for seizure breakthrough More recommendation per clinical course Prognosis: Poor This medical document was created using an electronic medical record system with Dragon computerized dictation system. Although this document has been carefully reviewed, there may still be some phonetic and typographical errors. These areas are purely typographical due to imperfections of the software programs, and do not reflect any compromise in the patient's medical care. Plan discussed with: KIAH Balbuena MD Nov 17, 2024 19:25
[2024-11-17 19:50] VITALS: RESP 18; O2SAT 98
[2024-11-17] MEDS ORDERED: LORazepam 2MG/ML-1ML VIAL IV PRN (20:15)
[2024-11-17 20:54] LABS: Folate (Folic Acid) 12.87 ng/mL (>5.38)
[2024-11-18 08:20] VITALS: PULSE 79; RESP 19; O2SAT 92
--- NOTE | 2024-11-18 09:17 | DVHPN2 ---
Progress Note - Dictate Date Seen: Nov 18, 2024 Medical Necessity Reason Pt with a Central, PICC or Fol: No Subjective Ms. Camejo is a 49 years old female with a history of hypertension, hypothyroidism, autism, development delay, seizure disorder, the patient was brought to the [facility] on 11/16/2024 with a chief company of altered mental status. I have seen and examined the patient, I have talked to her nurse and other medical staff, she was awake, oriented to person place, her voice slurry, she still have same amount of tremor in the arms and the chin According to her medication list, the patient was on valproate acid 250 mg/5 mL, 15 mL t.i.d. gabapentin, 250 mg/5ml, 6 ml in the morning, afternoon, 18ml in the evening Depakote, 11/17/2024: 114.9 WBC/HB/PLT/MCV, 11/17/2024: 3. 9/11/9/63/101.3 HCO3 11/16/2024: 37, 11/17/2024: 36 BUN/CR, 11/17/2024: 18/1.15 Liver function tests, 11/17/2024: Unremarkable NH3, : 39, 69, 11/17/2024: 31 Vitamin B12, 11/17/2024: 866 Folic acid, 11/17/2024: 12.87 TSH, 12/03/2024: 8.69 FT4, 12/03/2024: 1.29 Ultrasound, 11/16/2024: 1. No acute findings identified. 2. Hepatic steatosis Chest X-Ray, 11/16/2024: No acute cardiopulmonary process CT head, 11/16/2024: 1. No acute intracranial hemorrhage, midline shift or mass effect. 2. If symptoms persist, further evaluation with MRI is recommended. 3. No significant change from the prior exam vital signs Vital Sign Date Time Temp Pulse Resp B/P (MAP) Pulse Ox O2 Delivery O2 Flow Rate FiO2 11/18/24 08:37 90 152/85 (107) 96 11/18/24 07:00 98.6 18 98.6 11/17/24 19:50 Room Air* 0 21 Total Intake and Output 11/17/24 11/17/24 11/18/24 15:00 23:00 07:00 Intake Total 50 ml Output Total 75 ml Balance 50 ml -75 ml medications Current Medications Medications Dose Ordered Sig/Marquita Route Start Time Stop Time Status Last Admin Dose Admin Levetiracetam 100 ml @ 400 mls/hr DAILY IV 11/17/24 10:00 11/17/24 11:06 400 MLS/HR Levothyroxine Sodium 75 mcg QAM@0600 PO 11/17/24 06:00 Ceftriaxone Sodium 50 ml @ 100 mls/hr DAILY@09 IV 11/17/24 09:00 11/17/24 09:15 100 MLS/HR Lactulose 15 ml DAILY PO 11/18/24 10:00 Multivitamins/ Minerals 1 tab DAILY PO 11/18/24 10:00 Lorazepam 1 mg Q5MINP PRN IV 11/17/24 20:15 Losartan Potassium 50 mg DAILY PO 11/18/24 10:00 objective General: the patient is well developed and nourished. No acute distress. MENTAL STATUS: Awake, oriented to herself SPEECH, LANGUAGE, HIGHER CORTICAL FUNCTION: no aphasia or dysathria. CRANIAL NERVES: Pupils are equal, round and reactive. EOMs full and conjugate. Facial sensation intact in all three divisions bilaterally. Mandibular strength intact. Facial muscles symmetrical and strength intact. SENSATION: Sensation to touch and pinprick is fine MOTOR: Normal tone in the upper and lower extremity. Normal muscle bulk. No fasciculations. Tremors in both arms, and chin. Muscle strength of the major groups in the upper extremities is 5/5. She moves the legs REFLEXES: Deep tendon reflexes are symmetrical. No pathological reflexes. CEREBELLAR/COORDINATION: Deferred, she can feed herself GAIT/STATION: deferred. laboratory and microbiology Test 11/18/24 08:48 Range/Units Serum Glucose Pending Problem List Altered mental status, etiology unclear Carbon dioxide retention Metabolic encephalopathy ? Hepatic encephalopathy Rule out other etiology Tremors ? Related to Depakote ? Secondary to metabolic encephalopathy Respiratory failure Seizure disorder Autism Mental retardation Thrombocytopenia, ? Secondary to Depakote Macrocytic anemia Assessment/Plan Monitoring Supportive treatment Telemetry Urinalysis EEG Lactulose Agree Keppra 1000 mg b.i.d. for seizure control Ativan for seizure breakthrough More recommendation per clinical course Prognosis: Poor This medical document was created using an electronic medical record system with [employer] dictation system. Although this document has been carefully reviewed, there may still be some phonetic and typographical errors. These areas are purely typographical due to imperfections of the software programs, and do not reflect any compromise in the patient's medical care. Prognosis poor Plan discussed with: Other Total Time (mins): 35 KIAH BRUNO MD Nov 18, 2024 09:17
[2024-11-18 09:29] LABS: Hematocrit 36.4 % (36.0-46.0); Hemoglobin 12.3 g/dL (12.2-16.2); Mean Corpuscular Hgb Conc. 33.7 g/dL (32.0-36.0); Mean Corpuscular Volume 100.9 fL (80.0-100.0); Platelet Count (auto) 69 10^3/uL (140-450); Red Blood Cells 3.61 10^6/uL (4.0-5.20); Red Cell Distribution Width 16.6 % (11.8-14.3); White Blood Cell 4.1 10^3/uL (4.4-10.8)
[2024-11-18 09:36] LABS: Anion Gap 7 (5-15); Carbon Dioxide 29 mmol/L (20-31); Chloride 103 mmol/L (98-107); Potassium 3.7 mmol/L (3.5-5.1); Sodium 139 mmol/L (136-145)
[2024-11-18 09:38] LABS: Band Neutrophils % (manual) 0; Basophils % (manual) 0 (0.0-2.0); Blast Cells 0; Calcium 9.6 mg/dL (8.7-10.4); Metamyelocytes % 0; Myelocytes % 0; Promyelocytes % 0; Reactive Lymphocytes 0
[2024-11-18 09:42] LABS: Glucose 85 mg/dL (74-106)
[2024-11-18 09:43] LABS: BUN/Creatinine Ratio 20.9 (10.0-20.0); Blood Urea Nitrogen 23 mg/dL (9-23)
[2024-11-18] MEDS ORDERED: ENOXAPARIN SOD 30 MG/0.3 ML SYRINGE SC SCH (10:00)
[2024-11-18 10:19] LABS: Urine Bacteria None Seen /hpf (None Seen)
[2024-11-18] MEDS: LACTULOSE 20Gm/30ML SOLN PO SCH (10:25)
[2024-11-18] MEDS: LOSARTAN POTASSIUM 50 MG TAB PO SCH (10:25)
[2024-11-18] MEDS: MULTIPLE VITAMINS W/ MINERALS TAB PO SCH (10:26)
[2024-11-18 10:46] LABS: Urine Blood 3+ /uL (Negative); Urine Clarity Turbid (Clear); Urine Color Light-Orange (Yellow); Urine Protein, UAD 2+ (Negative); Urine Specific Gravity 1.027 (1.001-1.035); Urine Squamous Epithelial Cell None Seen /hpf (<5); Urine Urobilinogen 3 mg/dL (Negative); Urine WBC 66 /hpf (0 - 5)
[2024-11-18 11:02] LABS: Amphetamine Screen, Urine Neg (NEGATIVE); Barbiturate Scree,Urine Neg (NEGATIVE); Benzodiazephine Screen, Urine Neg (NEGATIVE); Cannabinoid Screen, Urine Neg (NEGATIVE); Cocaine Screen, Urine Neg (NEGATIVE); Opiate Scree,Urine Neg (NEGATIVE); Phencyclidine Screen, Urine Neg (NEGATIVE)
--- NOTE | 2024-11-18 11:35 | DVHSR ---
APPROVED REPORT EXAM: LIMITED Two-dimensional and M-mode echocardiogram with Doppler and color Doppler. Blood Pressure: 158/83 mmHg INDICATION hypoxia RISK FACTORS Obesity: Height: 5'5, Weight: 176 DIMENSIONS LVDd (3.8-5.7cm)LA (2D)3.3 (1.9-4.0cm)Aortic Root3.6 (2.0-3.7cm) LVDs (2.5-4.0cm)LA (MM) (1.9-4.0cm)Aortic Cusp Exc1.7 (1.5-2.0cm) EF (%) 55.0 (55-70%)Rt. Atrium3.6 (1.9-4.0cm)Asc. Aorta cm Mitral Valve MitralMitral Stenosis E wave0.58m/sMV Mean GR.mmHg A wave1.00m/sMV Peak GR.mmHg E/A ratio0.62D MVAcm2 DECEL [id number] 1/2 Timems Aortic Valve Aortic ValveAortic Stenosis V10.74m/Zaki Mean GR.4mmHg V21.37m/Zaki Peak GR.7mmHg LVOT Diameter2.4 (1.8-2.4cm)Doppler AVA2.44cm2 LEFT VENTRICLE The left ventricle is of normal size. Ejection fraction is estimated at 55%. Study is nondiagnostic to assess for wall motion abnormalities. There is impaired relaxation of the left ventricle. E to E prime ratio is not assessed. RIGHT VENTRICLE Not well visualized. ATRIA Left atrium is of normal size. Not well visualized. Not well visualized. MITRAL VALVE Likely of normal structure and function. Leaflets are not well visualized. No significant regurgita tion. PULMONIC VALVE Not visualized. TRICUSPID VALVE Not visualized. PA systolic pressure could not be estimated. AORTIC VALVE Not very well visualized. There does not appear to be significant stenosis or regurgitation. GREAT VESSELS Not well visualized. PERICARDIAL EFFUSION No significant pericardial effusion. IVC is not visualized. Other Information Quality : Technically LimitedRhythm : Technically limited study due to PT SITTING UP, PT MOVING Conclusion The study is very technically limited. Left ventricle is of normal size and likely normal systolic function. The right ventricle is not visualized. No evidence of hemodynamically significant aortic stenosis or regurgitation. No significant mitral regurgitation. The other valves are not well visualized. No pericardial effusion. PA systolic pressure could not be estimated.
[2024-11-18 11:47] LABS: Eosinophils % (manual) 2 (0-7); Lymphocytes % (manual) 21 (10.0-50.0); Macrocytosis Slight; Monocytes % (manual) 15 (0-12); Platelet Estimate Decreased
--- NOTE | 2024-11-18 18:33 | DVHPNRES ---
Progress Note Date Seen: Nov 18, 2024 Resident Creating Document: NII FARRELL RESIDENT Medical Necessity Reason Pt with a Central, PICC or Fol: No Subjective Review of Systems This is a 49-year-old female with past medical history of autism, moderate developmental delay, epilepsy, hypothyroidism, seasonal allergy, brought from the assisted living facility due to altered mental status. Per patient caregiver, the patient has been more confused since 2 days which is gradually worsen. Confusion was associated with decreased oral intake and impaired mobility. At baseline, the patient can use few words, and can communicate for basic needs, but since 2 days the patient is less verbal. Patient is seen and examined on the bedside in the ED. Patient is alert, orientedX3 . Patient is less verbal and not able to communicate properly. Objective vital signs Vital Sign Date Time Temp Pulse Resp B/P (MAP) Pulse Ox O2 Delivery O2 Flow Rate FiO2 11/18/24 13:00 68 13 146/65 (92) 94 11/18/24 12:00 98.8 98.8 11/18/24 08:20 Nasal Cannula* 2 28 Total Intake and Output 11/17/24 11/17/24 11/18/24 15:00 23:00 07:00 Intake Total 50 ml Output Total 75 ml Balance 50 ml -75 ml medications Current Medications Medications Dose Ordered Sig/Marquita Route Start Time Stop Time Status Last Admin Dose Admin Levetiracetam 100 ml @ 400 mls/hr DAILY IV 11/17/24 10:00 11/18/24 10:25 400 MLS/HR Levothyroxine Sodium 75 mcg QAM@0600 PO 11/17/24 06:00 Ceftriaxone Sodium 50 ml @ 100 mls/hr DAILY@09 IV 11/17/24 09:00 11/18/24 09:46 100 MLS/HR Lactulose 15 ml DAILY PO 11/18/24 10:00 11/18/24 10:25 15 ML Multivitamins/ Minerals 1 tab DAILY PO 11/18/24 10:00 11/18/24 10:26 1 TAB Lorazepam 1 mg Q5MINP PRN IV 11/17/24 20:15 Losartan Potassium 50 mg DAILY PO 11/18/24 10:00 11/18/24 10:25 50 MG Examination Physical examination: General Appearance: Alert, patient is less verbal, orientation could not assessed HEENT: Has intermittent repetitive blinking Respiratory: Bilateral decreased breath sounds Cardiovascular: Regular rate, Normal S1, Normal S2, No murmurs, no chest wall tenderness Abdominal: Normal bowel sounds, Soft, No tenderness, No hepatospenomegaly, No masses Extremities: +1 bilateral pedal edema Skin: Bilateral dry skin of foot with scaling Neuro: Currently the patient is wheelchair-bound, could not perform neurological examination, resting tremor laboratory and microbiology Laboratory Tests 11/18/24 08:48 Test 11/18/24 08:48 Range/Units Serum Glucose 85 74-106 mg/dL Microbiology Date/Time Source Procedure Growth Status 11/17/24 17:16 Nose MRSA Screen - Final Complete 11/16/24 18:30 Blood Blood Culture - Preliminary Resulted Labs and/or images reviewed: Labs reviewed by me, Image(s) reviewed by me Problem List/Assessment/Plan Problem List/Assessment/Plan Assessment/Plan Acute toxic encephalopathy, likely due to polypharmacy/ Hepatic encephalopathy History of autism History of epilepsy Moderate developmental today Serum valproic acid level is raised Head CT scan, shows no acute intracranial abnormalities Hb drops to 11.9 likely due to hemodilution, MCV>100 Continue levetiracetam Hold home meds Empiric antibiotic ceftriaxone Covid/Flu negative Urinalysis showed no sign of UTI and ordered urine bacterial culture Preliminary blood culture revealed Gram-positive cocci in cluster, resembles possible contamination and ordered another blood culture. Neurology evaluated the patient and recommended EEG, Ativan for seizure breakthrough, telemetry monitoring and seizure precaution Possible gastroenteritis Patient has increased bowel movements since 2 days 1L normal saline given. Hypokalemia Replenished Hepatic steatosis Hyper ammonia Liver ultrasound shows, hepatic steatosis Ammonia trend 69>31 Thrombocytopenia, no bleeding Hypertensive heart disease - Losartan 50 mg p.o. daily - Echo on 11/18/2023 revealed ejection fraction 55% History of hypothyroidism Continue levothyroxine 75 mcg TSH is raised at 8.69 T3/T4 normal DIET: Regular diet BOWEL REGIMEN: 15 ml of lactulose daily. CODE STATUS: Goal of care discussed with the mother on the phone, for more than 23 minutes, full code DISPOSITION: Telemetry Plan discussed with Dr. Irby Plan discussed with: Patient, Other My Orders My Orders Orders - NII FARRELL Procedure Category Date Status Time Losartan Tablet PHA 11/18/24 In Process (Cozaar Tablet) 10:00 Urine Bacterial ANEUDY 11/18/24 Uncollected Culture 15:03 Date of Service: Nov 18, 2024 Billing Provider: RIGO BREEN MD Common Visit Codes: [id number] INP/OBS CARE(HIGH) NII FARRELL RESIDENT Nov 18, 2024 18:33 RIGO BREEN MD Nov 19, 2024 16:21
[2024-11-18 20:00] VITALS: PULSE 87; RESP 19; O2SAT 95
[2024-11-18 23:20] VITALS: PULSE 71; RESP 18; O2SAT 94
[2024-11-18 23:25] VITALS: BP 161/95; PULSE 71; RESP 17; TEMP 99.2; O2SAT 94
[2024-11-19] VITALS (7 sets, daily range): BP systolic 130–166; BP diastolic 65–107; PULSE 66–90; RESP 16–18; TEMP 98.2–99.3; O2SAT 93–97
[2024-11-19] MEDS ORDERED: FLUO40CA PO (01:34)
[2024-11-19] MEDS ORDERED: MELA3TAB27 PO (01:34)
[2024-11-19] MEDS ORDERED: NORETAB32 PO (01:34)
[2024-11-19] MEDS ORDERED: OLAN1TAB19 PO (01:34)
[2024-11-19] MEDS ORDERED: FURO20TA3 PO (01:34)
[2024-11-19] MEDS ORDERED: OLAN1TAB7 PO (01:34)
[2024-11-19] MEDS ORDERED: LEVO-848 PO (01:34)
[2024-11-19] MEDS ORDERED: MET50T PO (01:34)
[2024-11-19] MEDS ORDERED: LOSA-534 PO (01:34)
[2024-11-19] MEDS ORDERED: GABA-1250 PO (01:36)
[2024-11-19] MEDS ORDERED: NORETAB PO (01:40)
[2024-11-19] MEDS ORDERED: VALP250S19 PO (01:40)
[2024-11-19] MEDS: METOPROLOL TARTRATE 50 MG TAB PO SCH (09:17)
--- NOTE | 2024-11-19 12:53 | ECG ---
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
--- NOTE | 2024-11-19 18:04 | DVHPNRES ---
Progress Note Date Seen: Nov 19, 2024 Resident Creating Document: NII FARRELL RESIDENT Medical Necessity Reason Pt with a Central, PICC or Fol: No Subjective Review of Systems This is a 49-year-old female with past medical history of autism, moderate developmental delay, epilepsy, hypothyroidism, seasonal allergy, brought from the assisted living facility due to altered mental status. Per patient caregiver, the patient has been more confused since 2 days which is gradually worsen. Confusion was associated with decreased oral intake and impaired mobility. At baseline, the patient can use few words, and can communicate for basic needs, but since 2 days the patient is less verbal. Patient is seen and examined on the bedside in the ED. Patient is alert, orientedX3 . Patient is less verbal and not able to communicate properly. Objective vital signs Vital Sign Date Time Temp Pulse Resp B/P (MAP) Pulse Ox O2 Delivery O2 Flow Rate FiO2 11/19/24 16:36 99.3 73 16 130/65 (86) 93 99.3 11/19/24 08:00 Nasal Cannula* 2 28 Total Intake and Output 11/18/24 11/18/24 11/19/24 15:00 23:00 07:00 Intake Total 150 ml Output Total 650 ml 550 ml Balance -500 ml -550 ml medications Current Medications Medications Dose Ordered Sig/Marquita Route Start Time Stop Time Status Last Admin Dose Admin Levetiracetam 100 ml @ 400 mls/hr DAILY IV 11/17/24 10:00 11/19/24 11:03 400 MLS/HR Levothyroxine Sodium 75 mcg QAM@0600 PO 11/17/24 06:00 11/19/24 05:36 75 MCG Ceftriaxone Sodium 50 ml @ 100 mls/hr DAILY@09 IV 11/17/24 09:00 11/19/24 09:16 100 MLS/HR Lactulose 15 ml DAILY PO 11/18/24 10:00 11/19/24 09:19 15 ML Multivitamins/ Minerals 1 tab DAILY PO 11/18/24 10:00 11/19/24 09:16 1 TAB Lorazepam 1 mg Q5MINP PRN IV 11/17/24 20:15 Losartan Potassium 50 mg DAILY PO 11/18/24 10:00 11/19/24 09:17 50 MG Metoprolol Tartrate 50 mg BID PO 11/19/24 10:00 11/19/24 09:17 50 MG Examination Physical examination: General Appearance: Alert, patient is less verbal, orientation could not assessed HEENT: Has intermittent repetitive blinking Respiratory: Bilateral decreased breath sounds Cardiovascular: Regular rate, Normal S1, Normal S2, No murmurs, no chest wall tenderness Abdominal: Normal bowel sounds, Soft, No tenderness, No hepatospenomegaly, No masses Extremities: +1 bilateral pedal edema Skin: Bilateral dry skin of foot with scaling Neuro: Currently the patient is wheelchair-bound, could not perform neurological examination, resting tremor laboratory and microbiology Laboratory Tests 11/18/24 08:48 Test 11/18/24 08:48 Range/Units Serum Glucose 85 74-106 mg/dL Microbiology Date/Time Source Procedure Growth Status 11/18/24 11:45 Blood Blood Culture - Preliminary NO GROWTH AFTER 24 HOURS OF INCUBATION. Resulted 11/18/24 08:53 Voided Urine Urine Culture - Preliminary Resulted 11/17/24 17:16 Nose MRSA Screen - Final Complete Labs and/or images reviewed: Labs reviewed by me, Image(s) reviewed by me Problem List/Assessment/Plan Problem List/Assessment/Plan Assessment/Plan Acute toxic encephalopathy, likely due to polypharmacy / Hepatic encephalopathy History of autism History of epilepsy Moderate developmental today Serum valproic acid level is raised Head CT scan, shows no acute intracranial abnormalities Hb drops to 11.9 likely due to hemodilution, MCV>100 Continue levetiracetam Hold home meds Empiric antibiotic ceftriaxone Covid/Flu negative Urinalysis showed no sign of UTI and ordered urine bacterial culture Preliminary blood culture revealed Gram-positive cocci in cluster, resembles possible contamination and ordered another blood culture. Neurology evaluated the patient and recommended EEG, Ativan for seizure breakthrough, telemetry monitoring and seizure precaution Possible gastroenteritis Patient has increased bowel movements since 2 days 1L normal saline given. Hypokalemia Replenished Hepatic steatosis Hyper ammonia Liver ultrasound shows, hepatic steatosis Ammonia trend 69>31 Thrombocytopenia, no bleeding Hypertensive heart disease - Losartan 50 mg p.o. daily - Echo on 11/18/2023 revealed ejection fraction 55% History of hypothyroidism Continue levothyroxine 75 mcg TSH is raised at 8.69 T3/T4 normal DIET: Regular diet BOWEL REGIMEN: 15 ml of lactulose daily. DVT prophylaxis : SCD CODE STATUS: Goal of care discussed with the mother on the phone, for more than 23 minutes, DNR DISPOSITION: Telemetry Plan discussed with Dr. Irby Plan discussed with: Patient, Other My Orders My Orders Orders - NII FARRELL Procedure Category Date Status Time Metoprolol Tartrate PHA 11/19/24 In Process Tablet (Lopressor Ta 10:00 Date of Service: Nov 19, 2024 Billing Provider: RIGO BREEN MD Common Visit Codes: [id number] INP/OBS CARE(HIGH) NII FARRELL Nov 19, 2024 18:04 RIGO BREEN MD Nov 23, 2024 16:21
--- NOTE | 2024-11-19 20:45 | DVHPN2 ---
Progress Note - Dictate Date Seen: Nov 19, 2024 Medical Necessity Reason Pt with a Central, PICC or Fol: No Subjective Ms. Camejo is a 49 years old female with a history of hypertension, hypothyroidism, autism, development delay, seizure disorder, the patient was brought to the [facility] on 11/16/[facility]24 with a chief company of altered mental status. I have seen and examined the patient, I have talked to her nurse and sitter, she was awake, she may only oriented to herself, she sometimes tries to get out of bed Sitter witnessed 4 spells event in that she spaces out, with flicking in the eyes, According to her medication list, the patient was on valproate acid 250 mg/5 mL, 15 mL t.i.d. gabapentin, 250 mg/5ml, 6 ml in the morning, afternoon, 18ml in the evening Depakote, 11/17/2024: 114.9 WBC/HB/PLT/MCV, 11/17/2024: 3. 9/11/9/63/101.3 HCO3 11/16/2024: 37, 11/17/2024: 36 BUN/CR, 11/17/2024: 18/1.15 Liver function tests, 11/17/2024: Unremarkable NH3, : 39, 69, 11/17/2024: 31 Vitamin B12, 11/17/2024: 866 Folic acid, 11/17/2024: 12.87 TSH, 12/03/2024: 8.69 FT4, 12/03/2024: 1.29 Ultrasound, 11/16/2024: 1. No acute findings identified. 2. Hepatic steatosis Chest X-Ray, 11/16/2024: No acute cardiopulmonary process CT head, 11/16/2024: 1. No acute intracranial hemorrhage, midline shift or mass effect. 2. If symptoms persist, further evaluation with MRI is recommended. 3. No significant change from the prior exam vital signs Vital Sign Date Time Temp Pulse Resp B/P (MAP) Pulse Ox O2 Delivery O2 Flow Rate FiO2 11/19/24 16:36 99.3 73 16 130/65 (86) 93 99.3 11/19/24 08:00 Nasal Cannula* 2 28 Total Intake and Output 11/18/24 11/18/24 11/19/24 15:00 23:00 07:00 Intake Total 150 ml Output Total 650 ml 550 ml Balance -500 ml -550 ml medications Current Medications Medications Dose Ordered Sig/Marquita Route Start Time Stop Time Status Last Admin Dose Admin Levetiracetam 100 ml @ 400 mls/hr DAILY IV 11/17/24 10:00 11/19/24 11:03 400 MLS/HR Levothyroxine Sodium 75 mcg QAM@0600 PO 11/17/24 06:00 11/19/24 05:36 75 MCG Ceftriaxone Sodium 50 ml @ 100 mls/hr DAILY@09 IV 11/17/24 09:00 11/19/24 09:16 100 MLS/HR Lactulose 15 ml DAILY PO 11/18/24 10:00 11/19/24 09:19 15 ML Multivitamins/ Minerals 1 tab DAILY PO 11/18/24 10:00 11/19/24 09:16 1 TAB Lorazepam 1 mg Q5MINP PRN IV 11/17/24 20:15 Losartan Potassium 50 mg DAILY PO 11/18/24 10:00 11/19/24 09:17 50 MG Metoprolol Tartrate 50 mg BID PO 11/19/24 10:00 11/19/24 09:17 50 MG objective General: the patient is well developed and nourished. No acute distress. MENTAL STATUS: Awake, oriented to herself SPEECH, LANGUAGE, HIGHER CORTICAL FUNCTION: no aphasia or dysathria. CRANIAL NERVES: Pupils are equal, round and reactive. EOMs full and conjugate. Facial sensation intact in all three divisions bilaterally. Mandibular strength intact. Facial muscles symmetrical and strength intact. SENSATION: Sensation to touch and pinprick is fine MOTOR: Normal tone in the upper and lower extremity. Normal muscle bulk. No fasciculations. Tremors in both arms, and chin. Muscle strength of the major groups in the upper extremities is 5/5. She moves the legs, muscle power feels no less than 4/5 REFLEXES: Deep tendon reflexes are symmetrical. No pathological reflexes. CEREBELLAR/COORDINATION: Deferred, she can feed herself GAIT/STATION: deferred. laboratory and microbiology Laboratory Tests 11/18/24 08:48 Test 11/18/24 08:48 Range/Units Serum Glucose 85 74-106 mg/dL Problem List Altered mental status, etiology unclear Carbon dioxide retention Metabolic encephalopathy ? Hepatic encephalopathy Rule out other etiology Tremors ? Related to Depakote ? Secondary to metabolic encephalopathy Respiratory failure Seizure disorder Autism Mental retardation Thrombocytopenia, ? Secondary to Depakote Macrocytic anemia The for episodic event reported by jessica on 11/19/2024 could be partial complex seizure Assessment/Plan Monitoring Supportive treatment Telemetry Urinalysis EEG Lactulose Keppra 1000 mg b.i.d. for seizure control Ativan for seizure breakthrough More recommendation per clinical course This medical document was created using an electronic medical record system with [employer] dictation system. Although this document has been carefully reviewed, there may still be some phonetic and typographical errors. These areas are purely typographical due to imperfections of the software programs, and do not reflect any compromise in the patient's medical care. Prognosis poor Plan discussed with: Other KIAH BRUNO MD Nov 19, 2024 20:45
[2024-11-20] VITALS (8 sets, daily range): BP systolic 155–167; BP diastolic 82–103; PULSE 61–76; RESP 17–20; TEMP 97.8–99.1; O2SAT 94–96
[2024-11-20] MEDS ORDERED: OLANZapine 5 MG TAB PO ONE (00:45)
[2024-11-20] MEDS: OLANZapine 5 MG TAB PO ONE (02:19)
[2024-11-20 06:05] LABS: Hemoglobin 11.2 g/dL (12.2-16.2); Mean Corpuscular Hemoglobin 34.5 pg (28.0-32.0); Mean Corpuscular Hgb Conc. 33.9 g/dL (32.0-36.0); Platelet Count (auto) 75 10^3/uL (140-450); Red Blood Cells 3.24 10^6/uL (4.0-5.20); Red Cell Distribution Width 15.9 % (11.8-14.3); White Blood Cell 4.2 10^3/uL (4.4-10.8)
[2024-11-20 06:27] LABS: Basophils % (manual) 0 (0.0-2.0); Blast Cells 0; Metamyelocytes % 0; Myelocytes % 0; Promyelocytes % 0; Reactive Lymphocytes 0
[2024-11-20 06:32] LABS: Calcium 8.9 mg/dL (8.7-10.4); Carbon Dioxide 26 mmol/L (20-31)
[2024-11-20 06:33] LABS: Potassium 4.3 mmol/L (3.5-5.1)
[2024-11-20 06:37] LABS: BUN/Creatinine Ratio 21.8 (10.0-20.0); Blood Urea Nitrogen 17 mg/dL (9-23); Glucose 93 mg/dL (74-106)
[2024-11-20 06:38] LABS: Chloride 111 mmol/L (98-107)
[2024-11-20 06:47] LABS: Band Neutrophils % (manual) 1; Eosinophils % (manual) 5 (0-7); Lymphocytes % (manual) 22 (10.0-50.0); Monocytes % (manual) 9 (0-12)
[2024-11-20 06:48] LABS: Macrocytosis Slight; Platelet Estimate Decreased
[2024-11-20 07:04] LABS: Anion Gap 4 (5-15); Sodium 141 mmol/L (136-145)
[2024-11-20] MEDS ORDERED: KEP500T PO (12:24)
[2024-11-20] MEDS ORDERED: LACT10SO3 PO (12:24)
--- NOTE | 2024-11-20 13:28 | DVHDSRES ---
Discharge Summary Date of Admission Resident Creating Document: NII FARRELL RESIDENT Nov 16, 2024 at 20:51 Date of Discharge: Nov 20, 2024 Admitting Diagnosis Acute metabolic / toxic encephalopathy Wounds: No wound was present Labs/Diagnostic Data: Laboratory Results Test 11/20/24 04:53 11/18/24 08:53 11/17/24 04:23 11/17/24 03:04 White Blood Count 4.2 10^3/uL (4.4-10.8) Red Blood Count 3.24 10^6/uL (4.0-5.20) Hemoglobin 11.2 g/dL (12.2-16.2) Hematocrit 33.0 % (36.0-46.0) Mean Corpuscular Volume 102.0 fL (80.0-100.0) Mean Corpuscular Hemoglobin 34.5 pg (28.0-32.0) Mean Corpuscular Hemoglobin Concent 33.9 g/dL (32.0-36.0) Red Cell Distribution Width 15.9 % (11.8-14.3) Platelet Count 75 10^3/uL (140-450) Mean Platelet Volume 8.2 fL (6.9-10.8) Neutrophils (%) (Auto) % (37.0-80.0) Lymphocytes (%) (Auto) % (10.0-50.0) Monocytes (%) (Auto) % (0.0-12.0) Basophils (%) (Auto) % (0.0-2.0) Neutrophils # (Auto) 10 ^3/uL (1.6-8.6) Lymphocytes # (Auto) 10 ^3/uL (0.4-5.4) Monocytes # (Auto) 10 ^3/uL (0-1.3) Differential Total Cells Counted 100.0 (100) Neutrophils % (Manual) 63 (37.0-80.0) Band Neutrophils % (Manual) 1 Lymphocytes % (Manual) 22 (10.0-50.0) Monocytes % (Manual) 9 (0-12) Eosinophils % (Manual) 5 (0-7) Basophils % (Manual) 0 (0.0-2.0) Metamyelocytes % (manual) 0 Myelocytes % (Manual) 0 Promyelocytes % (Manual) 0 Blast Cells % (Manual) 0 Reactive Lymphocytes 0 Platelet Estimate Decreased Macrocytosis Slight Sodium Level 141 mmol/L (136-145) Potassium Level 4.3 mmol/L (3.5-5.1) Chloride Level 111 mmol/L (98-107) Carbon Dioxide Level 26 mmol/L (20-31) Anion Gap 4 (5-15) Blood Urea Nitrogen 17 mg/dL (9-23) Creatinine 0.78 mg/dL (0.550-1.02) Glomerular Filtration Rate Calc 92 mL/min (>90) BUN/Creatinine Ratio 21.8 (10.0-20.0) Serum Glucose 93 mg/dL (74-106) Calcium Level 8.9 mg/dL (8.7-10.4) Urine Color Light-orange (Yellow) Urine Clarity Turbid (Clear) Urine pH 6.0 (5.0-9.0) Urine Specific [place] 1.027 (1.001-1.035) Urine Protein 2+ (Negative) Urine Ketones 1+ (Negative) Urine Blood 3+ /uL (Negative) Urine Nitrite Negative (Negative) Urine Bilirubin Negative (Negative) Urine Urobilinogen 3 mg/dL (Negative) Urine Leukocyte Esterase Trace /uL (Negative) Urine RBC 1279 /hpf (0 - 4) Urine WBC 66 /hpf (0 - 5) Urine Squamous Epithelial Cells None seen /hpf (<5) Urine Bacteria None seen /hpf (None Seen) Urine Glucose Normal mg/dL (Normal) Urine Opiates Screen Neg (NEGATIVE) Urine Fentanyl Screen Neg (NEGATIVE) Urine Barbiturates Screen Neg (NEGATIVE) Urine Phencyclidine Screen Neg (NEGATIVE) Urine Amphetamines Screen Neg (NEGATIVE) Urine Benzodiazepines Screen Neg (NEGATIVE) Urine Cocaine Screen Neg (NEGATIVE) Urine Cannabinoids Screen Neg (NEGATIVE) Total Bilirubin 0.6 mg/dL (0.2-1.0) Aspartate Amino Transferase (AST) 31 U/L (13-40) Alanine Aminotransferase (ALT) 17 U/L (7-40) Alkaline Phosphatase 78 U/L (46-116) Ammonia 31 umol/L (11-32) Total Protein 6.8 g/dL (5.7-8.2) Albumin 3.5 g/dL (3.2-4.8) Vitamin B12 Level 1198 pg/mL (211-911) Vitamin D 25-Hydroxy 37.3 ng/mL (30.0-100) Folic Acid 12.87 ng/mL (>5.38) Influenza Type A Antigen Negative (Negative) Influenza Type B Antigen Negative (Negative) SARS-CoV-2 Antigen (Rapid) Negative (NEGATIVE) Test 11/16/24 21:52 11/16/24 21:37 11/16/24 19:59 11/16/24 18:30 Thyroid Stimulating Hormone (TSH) 8.69 uIU/mL (0.55-4.78) Blood Gas Specimen Type Arterial Blood Gas Sample Site Right radial Blood Gas Patient Temperature 37.0 Arterial Blood Date Drawn [id number] Arterial Blood pH 7.496 (7.350-7.450) Arterial Blood Partial Pressure CO2 37.4 mmHg (32.0-45.0) Arterial Blood Partial Pressure O2 56.4 mmHg (83.0-108.0) Arterial Blood HCO3 28.2 mmol/L (21.0-28.0) Arterial Blood Oxygen Saturation 91.0 % (94.0-98.0) Arterial Blood Base Excess 4.9 mmol/L (-2.0-3.0) Arterial Blood Oxyhemoglobin 89.5 % (94.0-98.0) Arterial Blood Carboxyhemoglobin 0.9 % (0.5-1.5) Arterial Blood Methemoglobin 0.7 % (0.0-1.5) Balwinder Test Modified Blood Gas Total Hemoglobin 13.40 g/dL (12.0-16.0) Blood Gas Liter Flow 0.00 Blood Gas Modality Room air Blood Gas Spontaneous Rate 20 FiO2 % 21.0 Specimen Drawn By [facility] rt Troponin I High Sensitivity 4 ng/L (</=34) Levetiracetam Level <2.0 ug/mL (10.0-40.0) Eosinophils (%) (Auto) 1.3 % (0.0-7.0) Eosinophils # (Auto) 0 10 ^3/uL (0-0.8) Basophils # (Auto) 0 10 ^3/uL (0-0.2) Nucleated Red Blood Cells 0.0 % Stomatocytes Few Prothrombin Time 11.1 sec (9.3-11.8) Prothrombin Time INR 1.05 (0.9-1.15) Activated Partial Thromboplast Time 28.2 SEC (24.5-34.5) Lactic Acid Level 0.8 mmol/L (0.4-2.0) Magnesium Level 2.2 mg/dL (1.6-2.6) B-Type Natriuretic Peptide 514.27 pg/mL (0-100) Free Thyroxine (T4) Calculated 1.29 ng/dL (0.89-1.76) Free Triiodothyronine (T3) pg/mL 2.30 pg/mL (2.3-4.2) Beta HCG, Quantitative 0.5 mIU/mL (1.5-4.2) Valproic Acid Level 114.9 ug/mL (50-100) Other Laboratory Tests 11/20/24 04:53 Brief Hx & Hospital Course: This is a 49-year-old female with past medical history of autism, moderate developmental delay, epilepsy, hypothyroidism, seasonal allergy, brought from the assisted living facility due to altered mental status. Per patient caregiver, the patient has been more confused since 2 days which is gradually worsen. Confusion was associated with decreased oral intake and impaired mobility. At baseline, the patient can use few words, and can communicate for basic needs, but since 2 days the patient is less verbal. Hospital course: Initial head CT showed no acute intracranial abnormality, valproic acid is elevated, ammonia trend 69>31. Discontinue valproic acid and continue Keppra 1000 mg IV daily. U/A showed no sign of UTI and preliminary blood culture revealed Gram-positive cocci in cluster resembles possible contamination and another blood culture revealed no growth in 24 hours of incubation. Patient was treated with empirical antibiotic IV ceftriaxone 1 g daily, and resumed home meds. Echo revealed ejection fraction 55%. During the hospital stay improvement of her symptoms seems return to her baseline and spoke with patient's mom and gave brief description of her condition and also discharge plan was discussed. Neurology evaluated the patient and recommended EEG, Ativan for seizure breakthrough, 1000 mg IV Keppra daily, telemetry monitoring and seizure precaution. Patient being discharged to assisted living facility where she was before coming to the hospital. Discharge diagnosis: Acute toxic encephalopathy, likely due to polypharmacy / Hepatic encephalopathy History of autism History of epilepsy Moderate developmental today JUVENAL Secondary to hemodynamically mediated / VMN resolved Hypokalemia resolved Hepatic steatosis Thrombocytopenia Hypertensive heart disease History of hypothyroidism Discharge disposition: Assisted living facility Medications: Keppra 500 mg p.o. b.i.d. for 1 month, Lactulose 15 mL p.o. daily for 1 month and continue home meds except valproic acid Follow up: PCP in 1 week Outpatient Neurology in 1-2 weeks Consults/Reason for consult Neurology was consulted Operations or Procedures EXAM: XR Chest, 1 View CLINICAL INDICATION: aloc TECHNIQUE: Frontal view of the chest. COMPARISON: None FINDINGS: LUNGS AND PLEURAL SPACES: Unremarkable. No consolidation. No pneumothorax. HEART: Unremarkable. No cardiomegaly. MEDIASTINUM: Unremarkable. Normal mediastinal contour. BONES/JOINTS: Unremarkable. No acute fracture. OTHER FINDINGS: . . . IMPRESSION: No acute cardiopulmonary process. EXAM: CT Head Without Intravenous Contrast CLINICAL INDICATION: ALOC TECHNIQUE: Axial computed tomography images of the head/brain without intravenous contrast. This CT exam was performed using one or more of the following dose reduction techniques: automated exposure control, adjustment of the mA and/or kV according to patient size, and/or use of iterative reconstruction technique. RADIATION DOSE: CTDlvol= 58 mGy, DLP= 1177.04 mGy-cm COMPARISON: CT CERVICAL WITHOUT CONTRAST on DOS: 06/18/24, CT HEAD WITHOUT CONTRAST on DOS: 06/18/24, CT HEAD WITHOUT CONTRAST on DOS: 06/09/24, CT Head dated 06/18/24 FINDINGS: BRAIN AND EXTRA-AXIAL SPACES: Unremarkable. No significant white matter disease. No acute intracranial hemorrhage, midline shift or mass effect. BONES/JOINTS: Unremarkable. No acute fracture. SOFT TISSUES: Unremarkable. SINUSES: Mucosal thickening of the maxillary sinuses, likely sinus disease.. MASTOID AIR CELLS: Unremarkable as visualized. No mastoid effusion. OTHER FINDINGS: . . IMPRESSION: 1. No acute intracranial hemorrhage, midline shift or mass effect. 2. If symptoms persist, further evaluation with MRI is recommended. 3. No significant change from the prior exam. INDICATION: thrombocytopenia, raised ammonia, to R/O liver disease TECHNIQUE: Multiple real-time sonographic images were obtained of the right upper quadrant. COMPARISON: None FINDINGS: The liver demonstrates heterogeneous echotexture without focal mass lesions. The liver measures 15.9 cm. There is no intrahepatic or extrahepatic ductal dilatation. The common duct measures 0.4 cm. The gallbladder is without evidence of stone or sludge. The gallbladder wall measures 0.2 cm and is within normal limits. The right kidney measures 8.5 cm. The right kidney is normal in contour, size, and shape. The echogenicity is normal. There is no hydronephrosis. The pancreas is not well visualized due to overlying bowel gas. IMPRESSION: 1. No acute findings identified. 2. Hepatic steatosis Condition at Discharge: Guarded Final Diagnosis/Problems List Acute toxic encephalopathy, likely due to polypharmacy / Hepatic encephalopathy History of autism History of epilepsy Moderate developmental today JUVENAL Secondary to hemodynamically mediated / VMN resolved Hypokalemia resolved Hepatic steatosis Thrombocytopenia Hypertensive heart disease History of hypothyroidism Discharge Disposition: Assisted Living Facility Discharge Instruct/Medications Diet: Cardiac 2g Na,low cholest Activity: No Restrictions, As Tolerated Follow Up/Referral: - Follow up with PCP in 1-2 weeks - Follow up with outpatient Neurology in 1-2 weeks Medications: lactulose 15 mL daily for 1 month Continue home meds Discharge Statement: "Patient was advised to return to the ER or call 911 if any headaches, dizziness, shortness of breath, chest pain, abdominal pain, bleeding, fevers, or worsening of medical condition. Patient was counseled about treatment plan, medications, possible side effects, patientverbalized understanding. All questions were answered to the best of my ability. This discharge took greater then 30 minutes in planning, reviewing documentation, counseling the patient, and discussing with other team members." ASSESSMENT ASSESSMENT Assessment Acute toxic encephalopathy, likely due to polypharmacy / Hepatic encephalopathy History of autism History of epilepsy Moderate developmental today JUVENAL Secondary to hemodynamically mediated / VMN resolved Hypokalemia resolved Hepatic steatosis Thrombocytopenia Hypertensive heart disease History of hypothyroidism Date of Service: Nov 20, 2024 Billing Provider: RIGO BREEN MD Common Visit Codes: 75856-FZT/[id number] DISCH DAY >30min NII FARRELL RESIDENT Nov 20, 2024 13:28 RIGO BREEN MD Nov 23, 2024 16:46
[2024-11-21 01:00] VITALS: BP 155/92; PULSE 63; RESP 20; TEMP 97.9; O2SAT 94
[2024-11-21 05:00] VITALS: BP 146/78; PULSE 70; RESP 21; TEMP 97.7; O2SAT 93
[2024-11-21 08:00] VITALS: PULSE 70; RESP 18
[2024-11-21 09:00] VITALS: BP 175/93; PULSE 70; RESP 16; TEMP 98.2; O2SAT 96
[2024-11-21] MEDS: hydrALAZINE HCL 10 MG TAB PO ONE (10:51)
--- NOTE | 2024-11-21 13:53 | DVHPNRES ---
Progress Note Date Seen: Nov 21, 2024 Resident Creating Document: HUBERT MCCORMACK RESIDENT Has the PT tested + for MRSA If YES, has PT been informed?: No Medical Necessity Reason Pt with a Central, PICC or Fol: No Subjective Review of Systems This is a 49-year-old female with past medical history of autism, moderate developmental delay, epilepsy, hypothyroidism, seasonal allergy, brought from the assisted living facility due to altered mental status. Per patient caregiver, the patient has been more confused since 2 days which is gradually worsen. Confusion was associated with decreased oral intake and impaired mobility. At baseline, the patient can use few words, and can communicate for basic needs, but since 2 days the patient is less verbal. Patient seen and examined at bedside. Patient is currently at her baseline, caregiver was at bedside as well. All questions were answered and addressed pertinently. Patient will be discharged today. Keppra 500 mg b.i.d. and lactulose 10 g daily was prescribed to the pharmacy. We explained to the patient and caregiver that they need to follow up closely with her PCP and with Neurology as an outpatient. Caregiver agreed and understood. Objective vital signs Vital Sign Date Time Temp Pulse Resp B/P (MAP) Pulse Ox O2 Delivery O2 Flow Rate FiO2 11/21/24 10:51 175/93 11/21/24 09:59 70 11/21/24 09:00 98.2 16 96 98.2 11/21/24 08:00 Nasal Cannula* 2 28 Total Intake and Output 11/20/24 11/20/24 11/21/24 14:59 22:59 06:59 Intake Total 150 ml 250 ml 650 ml Output Total 325 ml 600 ml Balance 150 ml -75 ml 50 ml Examination Physical Examination: General Appearance: Alert, patient is less verbal, orientation could not assessed HEENT: Has intermittent repetitive blinking Respiratory: Bilateral decreased breath sounds Cardiovascular: Regular rate, Normal S1, Normal S2, No murmurs, no chest wall tenderness Abdominal: Normal bowel sounds, Soft, No tenderness, No hepatospenomegaly, No masses Extremities: +1 bilateral pedal edema Skin: Bilateral dry skin of foot with scaling Neuro: Currently the patient is wheelchair-bound, could not perform neurological examination, resting tremor laboratory and microbiology Laboratory Tests 11/20/24 04:53 Test 11/20/24 04:53 Range/Units Serum Glucose 93 74-106 mg/dL Microbiology Date/Time Source Procedure Growth Status 11/18/24 11:45 Blood Blood Culture - Preliminary NO GROWTH AFTER 72 HOURS OF INCUBATION. Resulted 11/18/24 08:53 Voided Urine Urine Culture - Final Complete 11/17/24 17:16 Nose MRSA Screen - Final Complete Problem List/Assessment/Plan Problem List/Assessment/Plan Assessment/Plan Acute toxic encephalopathy, likely due to polypharmacy / Hepatic encephalopathy History of autism History of epilepsy Moderate developmental today Serum valproic acid level is raised Head CT scan, shows no acute intracranial abnormalities Hb drops to 11.9 likely due to hemodilution, MCV>100 -Continue levetiracetam -Hold home meds -Empiric antibiotic ceftriaxone -Covid/Flu negative -Urinalysis showed no sign of UTI and ordered urine bacterial culture -Preliminary blood culture revealed Gram-positive cocci in cluster, resembles possible contamination and ordered another blood culture. -Neurology evaluated the patient and recommended EEG, Ativan for seizure breakthrough, telemetry monitoring and seizure precaution Possible gastroenteritis Patient has increased bowel movements since 2 days 1L normal saline given. Hypokalemia Replenished Hepatic steatosis -Hyper ammonia -Liver ultrasound shows, hepatic steatosis -Ammonia trend 69>31 Thrombocytopenia, no bleeding Hypertensive heart disease - Losartan 50 mg p.o. daily - Echo on 11/18/2023 revealed ejection fraction 55% History of hypothyroidism Continue levothyroxine 75 mcg TSH is raised at 8.69 T3/T4 normal Goals of care discussed with the caregiver and patient at bedside for 15 min Plan discussed with Dr. Quesada Plan discussed with: Patient, Other (caregiver) Dietary Evaluation Review Comments: Monitor PO intake at 75% of her needs Expected Outcomes/Goals: gradual weight loss HUBERT MCCORMACK RESIDENT Nov 21, 2024 13:53
== END 2024-11-21 11:20 | disposition home or self-care (01) | DRG 441 ==
LOC: EDUNIT# 17:24 → EDBD 17:24 → ER 17:29 → OVERFLOW 20:51 → WEST WING 11-18 22:50 → TELE-WESTW 11-20 01:57
PROVIDERS: ADMIT Student in an Organized Health Care Education/Training Program; ATTEND Student in an Organized Health Care Education/Training Program
DX: K76.82 Hepatic encephalopathy (principal); G92.8 Other toxic encephalopathy; J96.91 Respiratory failure, unspecified with hypoxia; N17.0 Acute kidney failure with tubular necrosis; F84.0 Autistic disorder; E87.29 Other acidosis; G40.909 Epilepsy, unspecified, not intractable, without status epilepticus; E03.9 Hypothyroidism, unspecified; Z20.822 Contact with and (suspected) exposure to COVID-19; F79 Unspecified intellectual disabilities; I10 Essential (primary) hypertension; T50.995A Adverse effect of other drugs, medicaments and biological substances, initial encounter; D53.9 Nutritional anemia, unspecified; D69.6 Thrombocytopenia, unspecified; K76.0 Fatty (change of) liver, not elsewhere classified; E87.6 Hypokalemia; D50.9 Iron deficiency anemia, unspecified; Z79.899 Other long term (current) drug therapy; Y92.89 Other specified places as the place of occurrence of the external cause; I11.9 Hypertensive heart disease without heart failure
CPT/HCPCS: 36415; 36600; 70450; 71045; 76705; 80048; 80053; 80164; 80307; 81001; 82140; 82306; 82542; 82607; 82746; 82805; 83605; 83735; 83880; 84439; 84443; 84481; 84484; 84702; 85007; 85025; 85027; 85610; 85730; 87040; 87077; 87081; 87086; 87186; 87426; 87804; 93005; 93306; G0378